=== PATIENT | female | born 1940 | race Two or more races ===

== ENCOUNTER 2020-09-18 15:46 | Inpatient (IN) | payer MEDICARE, OTHER ==
[~2020-09-18] VITALS: Ht 154.9 cm; Wt 54.0 kg
[2020-09-18 17:25] LABS: BASOPHILS # (AUTO) 0.1 /CMM (0.0-0.2); BASOPHILS % (AUTO) 0.7 % (0.0-2.0); HEMATOCRIT 27 % (33-45); HEMOGLOBIN 8.7 g/dL (11.5-14.8); LYMPHOCYTES % (AUTO) 29.7 % (20.0-44.0); MEAN CORPUSCULAR HGB CONC 32 g/dl (31.0-36.0); MEAN CORPUSCULAR VOLUME 90 fL (82-100); MONOCYTES # (AUTO) 1.1 /CMM (0.1-1.30); MONOCYTES % (AUTO) 11.3 % (2.0-12.0); NEUTROPHILS # (AUTO) 5.7 /CMM (1.8-8.9); NEUTROPHILS % (AUTO) 57.3 % (43.0-81.0); PLATELET COUNT (AUTO) 306 /CMM (150-450); RED BLOOD CELL COUNT(AUTO) 2.99 MIL/uL (4.0-5.2); WHITE BLOOD COUNT (AUTO) 9.9 K/uL (4.3-11.0)
[2020-09-18] MEDS ORDERED: IV NS 0.9% 1,000 ML BAG IV ONE (17:30)
[2020-09-18 17:36] LABS: CALCIUM, SERUM 8.9 mg/dL (8.5-10.1); CARBON DIOXIDE 23 mmol/L (21-32); CHLORIDE 100 mmol/L (98-107); GLUCOSE 104 mg/dL (74-106); POTASSIUM 5.1 mmol/L (3.5-5.1); SODIUM SERUM 132 mmol/L (136-145); UREA NITROGEN, BLOOD 34 mg/dL (7-18)
[2020-09-18] MEDS ORDERED: ENAL20TA18 PO (17:51)
[2020-09-18] MEDS ORDERED: TAMS-12 PO (17:51)
[2020-09-18] MEDS ORDERED: GABA300C PO (17:51)
[2020-09-18] MEDS ORDERED: MELO-107 PO (17:51)
[2020-09-18] MEDS ORDERED: HYDR-3972 MT (17:51)
[2020-09-18] MEDS ORDERED: ACETAMINOPHEN 325 MG TABLET PO PRN (18:30)
[2020-09-18] MEDS ORDERED: MAGNESIUM HYDROXIDE 30 ML UDC PO PRN (18:30)
[2020-09-18] MEDS ORDERED: HYDROCODONE/APAP 5/325MG TABLET PO PRN (18:30)
[2020-09-18] MEDS ORDERED: ONDANSETRON HCL/PF 4 MG/2 ML VIAL IVP PRN (18:30)
[2020-09-18] MEDS ORDERED: MAG HYDROX/AL HYDROX/SIMETH 30 ML UDC PO PRN (18:30)
[2020-09-18] MEDS ORDERED: ZOLPIDEM TARTRATE 5 MG TABLET PO PRN (18:30)
[2020-09-18] MEDS ORDERED: Z GUARD REMEDY 2 OZ OINT TP PRN (18:30)
[2020-09-18] MEDS ORDERED: ENALAPRIL MALEATE (10 MG) 10 MG TABLET PO PRN (21:00)
[2020-09-18] MEDS: IV NS 0.9% 1,000 ML IV PRN (22:01)
[2020-09-18] MEDS: HYDROCODONE/APAP 5/325MG TABLET PO PRN (22:34)
[2020-09-19] VITALS: BP 114/68
[2020-09-19 06:35] LABS: ALKALINE PHOSPHATASE 43 U/L (46-116); ASPARTATE AMINOTRANSFERASE 16 U/L (15-37); BILIRUBIN,TOTAL 0.3 mg/dL (0.2-1.0); CARBON DIOXIDE 18 mmol/L (21-32); CHLORIDE 115 mmol/L (98-107); GLUCOSE 57 mg/dL (74-106); PHOSPHORUS 2.4 mg/dL (2.5-4.9); POTASSIUM 3.1 mmol/L (3.5-5.1); SODIUM SERUM 142 mmol/L (136-145); TOTAL PROTEIN, SERUM 3.5 g/dL (6.4-8.2); UREA NITROGEN, BLOOD 20 mg/dL (7-18)
[2020-09-19 07:20] LABS: ALANINE AMINOTRANSFERASE < 6 U/L (12-78)
[2020-09-19 07:26] LABS: ALBUMIN 1.4 g/dL (3.4-5.0); CALCIUM, SERUM 5.3 mg/dL (8.5-10.1)
[2020-09-19 07:27] LABS: MAGNESIUM 1.2 mg/dL (1.8-2.4)
[2020-09-19 08:13] VITALS: BP 108/41
[2020-09-19] MEDS: DOCUSATE SODIUM 100 MG CAPSULE PO SCH ×2 (08:48→17:31)
[2020-09-19 09:22] LABS: BASOPHILS # (AUTO) 0.1 /CMM (0.0-0.2); BASOPHILS % (AUTO) 0.9 % (0.0-2.0); EOSINOPHILS % (AUTO) 3.2 % (0.0-6.0); HEMATOCRIT 26 % (33-45); HEMOGLOBIN 8.5 g/dL (11.5-14.8); LYMPHOCYTES # (AUTO) 2.7 /CMM (0.8-4.8); LYMPHOCYTES % (AUTO) 36.6 % (20.0-44.0); MEAN CORPUSCULAR HGB CONC 33 g/dl (31.0-36.0); MEAN CORPUSCULAR VOLUME 91 fL (82-100); MONOCYTES # (AUTO) 0.8 /CMM (0.1-1.30); MONOCYTES % (AUTO) 10.1 % (2.0-12.0); NEUTROPHILS # (AUTO) 3.6 /CMM (1.8-8.9); NEUTROPHILS % (AUTO) 49.2 % (43.0-81.0); PLATELET COUNT (AUTO) 261 /CMM (150-450); RED BLOOD CELL COUNT(AUTO) 2.87 MIL/uL (4.0-5.2); WHITE BLOOD COUNT (AUTO) 7.4 K/uL (4.3-11.0)
[2020-09-19] MEDS ORDERED: K PHOS NEUTRAL 250 MG TABLET PO ONE (09:30)
[2020-09-19] MEDS ORDERED: Magnesium 1GM/D5W 100ML PREMIX 100 ML IV SCH (09:30)
[2020-09-19] MEDS: POTASSIUM CHLORIDE 20 MEQ TAB.PRT.SR PO SCH ×2 (09:36→10:37)
[2020-09-19] MEDS ORDERED: HYDROGEL DRESSING 90 GM TUBE TP PRN (10:30)
[2020-09-19] MEDS: HYDROGEL DRESSING 90 GM TUBE TP SCH (12:20)
[2020-09-19] MEDS ORDERED: MAGNESIUM HYDROXIDE 30 ML UDC PO ONE (13:30)
[2020-09-19] MEDS ORDERED: Calcium Gluconate 1GM/10ML 9.3 MEQ in IV D5W 250 ML IV ONE (14:00)
[2020-09-19 16:05] VITALS: BP 130/43
[2020-09-19] MEDS: ENSURE ENLIVE CHOC 237 ML CAN PO SCH (17:00)
[2020-09-19] MEDS ORDERED: Magnesium 1GM/D5W 100ML PREMIX 100 ML IV ONE (18:32)
[2020-09-19 19:49] VITALS: BP 126/55
[2020-09-19] MEDS: GABAPENTIN 300 MG CAPSULE PO SCH (21:25)
[2020-09-19] MEDS: HYDROCODONE/APAP 5/325MG TABLET PO PRN (22:56)
[2020-09-20] VITALS: BP 130/64
[2020-09-20] MEDS: IV NS 0.9% 1,000 ML IV PRN ×2 (05:20→19:10)
[2020-09-20] MEDS: ENSURE ENLIVE CHOC 237 ML CAN PO SCH ×3 (08:00→17:00)
[2020-09-20] MEDS: GABAPENTIN 300 MG CAPSULE PO SCH ×3 (08:41→17:00)
[2020-09-20] MEDS: DOCUSATE SODIUM 100 MG CAPSULE PO SCH ×2 (09:00→17:00)
[2020-09-20] MEDS: HYDROGEL DRESSING 90 GM TUBE TP SCH (09:26)
[2020-09-20 11:45] LABS: ALBUMIN 2.3 g/dL (3.4-5.0); BILIRUBIN,TOTAL 0.6 mg/dL (0.2-1.0); CALCIUM, SERUM 8.5 mg/dL (8.5-10.1); CREATININE 1.1 mg/dL (0.6-1.3); PHOSPHORUS 3.1 mg/dL (2.5-4.9); POTASSIUM 5.8 mmol/L (3.5-5.1); TOTAL PROTEIN, SERUM 5.5 g/dL (6.4-8.2)
[2020-09-20] MEDS ORDERED: SODIUM POLYSTYRENE SULFONATE 15 G/60 ML BOTTLE PO ONE (13:00)
[2020-09-20 17:54] LABS: CREATININE, URINE 28.7 MG/DL (30.0-125.0); URINE TOTAL PROTEIN 12.9 mg/dL (0-11.9)
[2020-09-20 20:00] VITALS: BP 150/79
[2020-09-21] VITALS: BP 148/72
[2020-09-21 04:00] VITALS: BP 132/61
[2020-09-21 06:47] LABS: ALBUMIN 2.2 g/dL (3.4-5.0); BILIRUBIN,TOTAL 0.7 mg/dL (0.2-1.0); CALCIUM, SERUM 8.1 mg/dL (8.5-10.1); MAGNESIUM 1.7 mg/dL (1.8-2.4); PHOSPHORUS 3.6 mg/dL (2.5-4.9); POTASSIUM 4.7 mmol/L (3.5-5.1); TOTAL PROTEIN, SERUM 5.4 g/dL (6.4-8.2)
[2020-09-21 07:02] LABS: THYROID STIMULATING HORMONE 1.696 uIU/mL (0.358-3.74); URIC ACID 5.3 mg/dL (2.6-7.2)
[2020-09-21] MEDS: GABAPENTIN 300 MG CAPSULE PO SCH ×3 (08:34→17:00)
[2020-09-21] MEDS: Magnesium 1GM/D5W 100ML PREMIX 100 ML IV SCH ×2 (08:34→09:50)
[2020-09-21] MEDS: ENSURE ENLIVE CHOC 237 ML CAN PO SCH ×3 (08:36→17:00)
[2020-09-21] MEDS: DOCUSATE SODIUM 100 MG CAPSULE PO SCH ×2 (08:50→17:00)
[2020-09-21] MEDS ORDERED: CALCIUM CARB 600MG /VIT D 1 EACH TABLET PO SCH (09:00)
[2020-09-21] MEDS: HYDROGEL DRESSING 90 GM TUBE TP SCH (09:50)
[2020-09-21] MEDS ORDERED: Calcium Carb 600MG /Vit D PO (13:27)
[2020-09-21] MEDS ORDERED: DOCU100C36 PO (13:27)
[2020-09-21] MEDS ORDERED: LACT-54 PO (13:27)
[2020-09-21] MEDS ORDERED: MEGE400O4 GT (13:30)
== END 2020-09-21 17:08 | disposition home health service (06) | DRG 682 ==
LOC: ER 15:46 → MED 20:30 → TELE 09-19 13:26 → MED 09-21 09:39
PROVIDERS: ADMIT Nurse Practitioner Acute Care; ATTEND Nurse Practitioner Acute Care
PROC: 05H633Z Insertion of Infusion Device into Left Subclavian Vein, Percutaneous Approach (ICD-10-PCS; principal; 2020-09-19)
PROC: B547ZZA Ultrasonography of Left Subclavian Vein, Guidance (ICD-10-PCS; 2020-09-19)
DX: N17.0 Acute kidney failure with tubular necrosis (principal); E43 Unspecified severe protein-calorie malnutrition; E87.1 Hypo-osmolality and hyponatremia; R64 Cachexia; M25.561 Pain in right knee; V48.4XXA Person boarding or alighting a car injured in noncollision transport accident, initial encounter; M19.90 Unspecified osteoarthritis, unspecified site; I10 Essential (primary) hypertension; E83.42 Hypomagnesemia; E83.51 Hypocalcemia; E86.1 Hypovolemia; E87.6 Hypokalemia; F32.9 Major depressive disorder, single episode, unspecified; Z96.651 Presence of right artificial knee joint; K59.00 Constipation, unspecified; R53.1 Weakness; E88.09 Other disorders of plasma-protein metabolism, not elsewhere classified; Z68.22 Body mass index [BMI] 22.0-22.9, adult; Y92.89 Other specified places as the place of occurrence of the external cause; Z20.822 Contact with and (suspected) exposure to COVID-19
CPT/HCPCS: 36415; 73564-TC; 76770-TC; 80048-TC; 80053-TC; 82570-TC; 83735-TC; 83970; 84100-TC; 84155-TC; 84300-TC; 84443-TC; 84484-TC; 84550-TC; 85025-TC; 87081-TC; 97112-TC; 97530-TC; A6248; C9803; G0378; J0610; J3475; J7030; J7060